=== PATIENT | male | born 1990 | race Caucasian/White ===

== ENCOUNTER 2017-04-28 23:58 | Emergency (ER) | payer BC | END 2017-04-29 02:52 | disposition home or self-care (01) | LOC: ER 23:58 | DX: S00.83XA Contusion of other part of head, initial encounter (principal); S00.12XA Contusion of left eyelid and periocular area, initial encounter; S00.212A Abrasion of left eyelid and periocular area, initial encounter; Z88.2 Allergy status to sulfonamides; W03.XXXA Other fall on same level due to collision with another person, initial encounter | CPT/HCPCS: 70450; 99284 ==